=== PATIENT | male | born 1980 | race Caucasian/White ===

== ENCOUNTER 2023-10-23 18:09 | Inpatient (IN) | payer OTHER ==
[~2023-10-23] VITALS: Ht 177.8 cm; Wt 108.9 kg
[2023-10-23 19:10] LABS: BASOPHILS ABSOLUTE AUTO 0.07 K/mm3 (0.00-0.23); BASOPHILS PERCENT AUTO 1 % (0-2); EOSINOPHILS PERCENT AUTO 2 % (0-6); Hemoglobin 14.1 g/dL (13.5-17.5); IMMATURE GRAN ABSOLUTE AUTO 0.04 K/mm3 (0.00-0.10); IMMATURE GRAN PERCENT AUTO 0 % (0-1); LYMPHOCYTES ABSOLUTE AUTO 2.45 K/mm3 (0.84-5.20); LYMPHOCYTES PERCENT AUTO 21 % (21-46); MONOCYTES ABSOLUTE AUTO 1.05 K/mm3 (0.16-1.47); MONOCYTES PERCENT AUTO 9 % (4-13); Mean Corpuscular HGB 29.4 pg (26.0-34.0); Mean Corpuscular HGB Conc 32.8 g/dL (31.5-36.5); Mean Corpuscular Volume 90 fL (80-100); NEUTROPHILS ABSOLUTE AUTO 7.83 K/mm3 (1.96-9.15); NEUTROPHILS PERCENT AUTO 67 % (41-73); Platelet Count 364 K/mm3 (150-400); RDW Coefficient Variation 14.8 % (11.7-14.2); RDW Standard Deviation 48.6 fL (35.1-46.3); Red Blood Cell Count 4.79 M/mm3 (4.30-5.90); White Blood Cell Count 11.64 K/mm3 (4.00-11.30)
[2023-10-23 19:38] LABS: Albumin, Blood 3.2 g/dL (3.4-5.0); Albumin/Globulin Ratio 0.8 (0.8-1.8); Bun/Creatinine Ratio 16.7 (12.0-20.0); Calcium, Blood 8.9 mg/dL (8.5-10.1); Creatinine, Blood 0.96 mg/dL (0.60-1.20); Potassium, Blood 4.3 mmol/L (3.5-5.5); Total Protein, Blood 7.2 g/dL (6.4-8.2)
[2023-10-23] MEDS ORDERED: Aspirin 325 MG Tab PO ONE (20:20)
[2023-10-24 02:46] VITALS: BP 129/103
[2023-10-24 02:50] LABS: Hematocrit 39.2 % (37.0-53.0); Hemoglobin 12.9 g/dL (13.5-17.5); Mean Corpuscular HGB 29.6 pg (26.0-34.0); Mean Corpuscular HGB Conc 32.9 g/dL (31.5-36.5); Mean Corpuscular Volume 90 fL (80-100); Mean Platelet Volume 9.6 fL (9.1-12.4); Platelet Count 276 K/mm3 (150-400); RDW Coefficient Variation 15.1 % (11.7-14.2); RDW Standard Deviation 49.5 fL (35.1-46.3); Red Blood Cell Count 4.36 M/mm3 (4.30-5.90); White Blood Cell Count 13.26 K/mm3 (4.00-11.30)
[2023-10-24 03:32] LABS: Anti-Xa UFH, PHA Monitoring <0.10 IU/mL; International Normalized Ratio 1.07; Prothrombin Time Results 11.4 Sec (9.7-11.5)
[2023-10-24] MEDS ORDERED: Heparin Sodium 5000 Units/ML 1ML MDV IV ONE (03:55)
[2023-10-24 03:57] LABS: Bun/Creatinine Ratio 16.4 (12.0-20.0); Calcium, Blood 7.6 mg/dL (8.5-10.1); Creatinine, Blood 0.98 mg/dL (0.60-1.20)
[2023-10-24] MEDS ORDERED: Heparin Sodium,Porcine/0.5 NS 500 ML IV SCH (04:00)
[2023-10-24 04:16] LABS: CHOL/HDL RATIO 4.6; Cholesterol 153 mg/dL (50-200); HDL Cholesterol 33 mg/dL (>39); Low Density Lipoprotein Chol 100 mg/dL (0-110); Triglycerides 98 mg/dL (30-160); Very Low Density Lipoprot Chol 19 mg/dL (6-32)
--- NOTE | 2023-10-24 04:37 | NUR ---
TRANSFER NOTE PT ARRIVED FROM ED AT 0240. PT A&O4 AND COOPERATIVE. PT DENIES CP AND DISCOMFORT. LEGAL PROJECT MANAGER CONFIRMED TRANSMISSION, PT CURRENTLY NSR. RESIDENTIAL ROOFER HELPER NOTIFIED CARDIO FOR CONSULT. PT NOW ON CONTINUOUS HEPARIN GTTS. PT EDUCATED ON RISKS AND BENEFITS TO NEW MED. NO SKIN BREAKDOWN PRESENT ON ADMISSION AND PT WAS ABLE TO ANSWER ALL ADMISSION QUESTIONS. BED IN LOWEST POSITION AND CALL LIGHT WITHIN REACH.
[2023-10-24] MEDS ORDERED: Atorvastatin 40 MG Tab PO SCH (09:00)
[2023-10-24] MEDS ORDERED: Aspirin 81 MG Chew PO SCH (09:00)
[2023-10-24] MEDS ORDERED: Furosemide 10 MG/ML 4ML Vial IV SCH (09:36)
[2023-10-24 09:51] VITALS: BP 154/109
[2023-10-24] MEDS ORDERED: Spironolactone 25 MG Tab PO SCH (10:00)
[2023-10-24] MEDS ORDERED: Dose Adjust by Pharmacy XX STA ×2 (11:28→18:30)
[2023-10-24 13:33] LABS: U Amphetamine Screen Not Detected; U Barbituate Screen Not Detected; U Benzodiazapine Screen Not Detected; U Buprenorphine Screen Not Detected; U Cannabinoids Screen Not Detected; U Cocaine Screen Not Detected; U Methadone Screen Not Detected; U Methamphetamine Screen Not Detected; U Opiates Screen Not Detected; U Oxycodone Screen Not Detected; U Phencyclidine Screen Not Detected
[2023-10-24 13:36] LABS: SARS-Cov-2 (COVID-19) PCR, MMC NEGATIVE (NEGATIVE)
[2023-10-24 14:05] VITALS: BP 149/121
[2023-10-24] MEDS ORDERED: Sacubitril/Valsartan 24 MG-26 MG Tab PO SCH (15:00)
[2023-10-24 15:07] VITALS: BP 143/105
[2023-10-24 19:10] VITALS: BP 135/104
--- NOTE | 2023-10-24 20:27 | NUR ---
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
[2023-10-24] MEDS ORDERED: Baclofen 10 MG Tab PO ONE (20:45)
--- NOTE | 2023-10-24 20:51 | NUR ---
CRAMPING PT STARTED TO REPORT CRAMPING PAIN IN BACK AND IN ABD. PT REPORTS THAT THE PAIN JUST SUDDENLY CAME OUT OF NOWHERE. AFTER A FEW MINUTES THAT CRAMPING SUBSIDED. PT RECENTLY HAS BEEN DIURESED WITH ALDACTONE, AND LASIK. VICKY KEITH NP CALLED AND NOTIFIED. RECEIVED ORDER FOR MUSCLE RELAXER AND TO RECHECKED LABS.
[2023-10-24 21:24] LABS: Magnesium, Blood 2.5 mg/dL (1.6-2.4); Potassium, Blood 3.8 mmol/L (3.5-5.5)
[2023-10-25 01:33] LABS: Bun/Creatinine Ratio 19.6 (12.0-20.0); Calcium, Blood 9.1 mg/dL (8.5-10.1); Creatinine, Blood 1.07 mg/dL (0.60-1.20); Potassium, Blood 3.8 mmol/L (3.5-5.5)
[2023-10-25] MEDS ORDERED: Dose Adjust by Pharmacy XX STA ×3 (02:06→14:49)
[2023-10-25 02:42] VITALS: BP 149/97
--- NOTE | 2023-10-25 05:49 | NUR ---
SHIFT SUMMARY PT HAS RESTED T/O THE NIGHT. PT GIVEN LASIK AT SHIFT CHANGE AND HAS BEEN VOIDING ADEQUATELY. PT HAD SOME CRAMPING IN HIS ABD AND BACK AT THE START OF THE SHIFT, SEE PREVIOUS NURSE'S NOTE. PO BACLOFEN GIVEN, WHICH RELIEVED CRAMPING. HEPARIN GTT INFUSING. VITALS ARE STABLE. NO REPORTS OF CHEST PAIN. PT HAS BEEN INDEPENDENT IN THE ROOM. BED IN LOWEST POSITION, CALL LIGHT WITHIN REACH.
[2023-10-25 07:01] VITALS: BP 144/101
[2023-10-25 08:09] LABS: BASOPHILS PERCENT AUTO 1 % (0-2); EOSINOPHILS ABSOLUTE AUTO 0.38 K/mm3 (0.00-0.68); EOSINOPHILS PERCENT AUTO 2 % (0-6); Hematocrit 47.2 % (37.0-53.0); Hemoglobin 15.4 g/dL (13.5-17.5); IMMATURE GRAN ABSOLUTE AUTO 0.07 K/mm3 (0.00-0.10); IMMATURE GRAN PERCENT AUTO 0 % (0-1); LYMPHOCYTES ABSOLUTE AUTO 2.28 K/mm3 (0.84-5.20); LYMPHOCYTES PERCENT AUTO 14 % (21-46); MONOCYTES ABSOLUTE AUTO 1.55 K/mm3 (0.16-1.47); MONOCYTES PERCENT AUTO 10 % (4-13); Mean Corpuscular HGB 28.9 pg (26.0-34.0); Mean Corpuscular HGB Conc 32.6 g/dL (31.5-36.5); Mean Corpuscular Volume 89 fL (80-100); Mean Platelet Volume 9.4 fL (9.1-12.4); NEUTROPHILS ABSOLUTE AUTO 11.56 K/mm3 (1.96-9.15); NEUTROPHILS PERCENT AUTO 73 % (41-73); Platelet Count 361 K/mm3 (150-400); RDW Coefficient Variation 14.9 % (11.7-14.2); RDW Standard Deviation 48.2 fL (35.1-46.3); Red Blood Cell Count 5.32 M/mm3 (4.30-5.90); White Blood Cell Count 15.94 K/mm3 (4.00-11.30)
[2023-10-25 08:24] LABS: Albumin, Blood 3.2 g/dL (3.4-5.0); Albumin/Globulin Ratio 0.8 (0.8-1.8); Bilirubin, Total 1.9 mg/dL (0.1-1.0); Bun/Creatinine Ratio 18.6 (12.0-20.0); Calcium, Blood 8.7 mg/dL (8.5-10.1); Creatinine, Blood 1.02 mg/dL (0.60-1.20); Globulin, Blood 3.8 g/dL (2.2-4.0); Magnesium, Blood 2.3 mg/dL (1.6-2.4); Potassium, Blood 3.6 mmol/L (3.5-5.5)
[2023-10-25] MEDS ORDERED: Empagliflozin 10 MG TAB PO SCH (09:00)
[2023-10-25] MEDS ORDERED: Potassium Chloride 20 MEQ TabCR PO ONE (12:00)
[2023-10-25 15:33] VITALS: BP 124/97
--- NOTE | 2023-10-25 18:15 | NUR ---
SHIFT SUMMARY PT HAD AN UNEVENTFUL DAY, SOME CRAMPING, DISCUSSED THIS WITH RESIDENTS AND REQUESTED BACLOFEN OR ANOTHER MUSCLE RELAXER WHICH HE HAD BEEN GIVEN A 1X ORDER LAST NIGHT WHICH HELPED BUT WAS NOT GIVEN TODAY. DAILY WEIGHT NOT RECORDED FROM NOC SHIFT SO THIS WAS UPDATED AFTER DINNER WAS COMPLETE.PT REPORTS SIIGNIFICANT IMPROVEMENT IN HIS BREATHING AND OVERALL COMFORT LEVEL TODAY. NO ACUTE EVENTS THIS SHIFT, CALL LIGHT IN REACH.
[2023-10-25 20:37] VITALS: BP 97/81
[2023-10-25] MEDS ORDERED: Baclofen 10 MG Tab PO ONE (22:05)
[2023-10-26 05:08] VITALS: BP 110/82
--- NOTE | 2023-10-26 05:10 | NUR ---
SHIFT SUMMARY NO ACUTE CHANGES TO REPORT OVERNIGHT, PT CONTINUES ON HEPARIN GTT OVERNIGHT ORDERED. PT REPORTS INTERMITTENT CRAMPING, BACLOFEN ORDERED. PT DOES NOT REPORT CHEST PAIN. VITALS STABLE. PT HAS BEEN INDEPENDENT IN THE ROOM. BED POSITION, CALL LIGHT WITHIN REACH.
[2023-10-26 05:13] LABS: BASOPHILS ABSOLUTE AUTO 0.09 K/mm3 (0.00-0.23); BASOPHILS PERCENT AUTO 1 % (0-2); EOSINOPHILS ABSOLUTE AUTO 0.44 K/mm3 (0.00-0.68); EOSINOPHILS PERCENT AUTO 3 % (0-6); Hematocrit 53.9 % (37.0-53.0); Hemoglobin 17.8 g/dL (13.5-17.5); IMMATURE GRAN ABSOLUTE AUTO 0.07 K/mm3 (0.00-0.10); IMMATURE GRAN PERCENT AUTO 1 % (0-1); LYMPHOCYTES ABSOLUTE AUTO 2.94 K/mm3 (0.84-5.20); LYMPHOCYTES PERCENT AUTO 23 % (21-46); MONOCYTES ABSOLUTE AUTO 1.72 K/mm3 (0.16-1.47); MONOCYTES PERCENT AUTO 13 % (4-13); Mean Corpuscular HGB 29.1 pg (26.0-34.0); Mean Corpuscular Volume 88 fL (80-100); Mean Platelet Volume 9.5 fL (9.1-12.4); NEUTROPHILS ABSOLUTE AUTO 7.73 K/mm3 (1.96-9.15); NEUTROPHILS PERCENT AUTO 60 % (41-73); Platelet Count 407 K/mm3 (150-400); RDW Coefficient Variation 15.4 % (11.7-14.2); RDW Standard Deviation 47.4 fL (35.1-46.3); Red Blood Cell Count 6.12 M/mm3 (4.30-5.90); White Blood Cell Count 12.99 K/mm3 (4.00-11.30)
[2023-10-26 05:42] LABS: Albumin, Blood 3.4 g/dL (3.4-5.0); Albumin/Globulin Ratio 0.8 (0.8-1.8); Bilirubin, Total 1.7 mg/dL (0.1-1.0); Bun/Creatinine Ratio 18.6 (12.0-20.0); Calcium, Blood 9.1 mg/dL (8.5-10.1); Creatinine, Blood 1.18 mg/dL (0.60-1.20); Globulin, Blood 4.2 g/dL (2.2-4.0); Potassium, Blood 3.9 mmol/L (3.5-5.5); Total Protein, Blood 7.6 g/dL (6.4-8.2)
[2023-10-26 07:43] VITALS: BP 97/62
[2023-10-26] MEDS ORDERED: Metoprolol Succinate 25 MG TABCR PO SCH (13:00)
[2023-10-26 14:34] VITALS: BP 108/70
--- NOTE | 2023-10-26 18:19 | NUR ---
SHIFT SUMMARY S/P CP, A/OX4, VSS, TOLERATING DIET, IURETICS CONTINUE TODAY, PLAN FOR ANGIOGRAM TOMORROW IN THE AM, NPO AT MIDNIGHT TONIGHT. NO ACUTE EVENTS THIS SHIFT, CALL LIGHT IN REACH.
[2023-10-26 19:41] VITALS: BP 104/74
[2023-10-27] VITALS (10 sets, daily range): BP systolic 93–121; BP diastolic 65–89
[2023-10-27 05:11] LABS: BASOPHILS PERCENT AUTO 1 % (0-2); EOSINOPHILS ABSOLUTE AUTO 0.43 K/mm3 (0.00-0.68); EOSINOPHILS PERCENT AUTO 4 % (0-6); Hemoglobin 17.4 g/dL (13.5-17.5); IMMATURE GRAN ABSOLUTE AUTO 0.07 K/mm3 (0.00-0.10); IMMATURE GRAN PERCENT AUTO 1 % (0-1); LYMPHOCYTES ABSOLUTE AUTO 3.26 K/mm3 (0.84-5.20); LYMPHOCYTES PERCENT AUTO 27 % (21-46); MONOCYTES ABSOLUTE AUTO 1.78 K/mm3 (0.16-1.47); MONOCYTES PERCENT AUTO 15 % (4-13); Mean Corpuscular HGB 29.1 pg (26.0-34.0); Mean Corpuscular HGB Conc 32.8 g/dL (31.5-36.5); Mean Corpuscular Volume 89 fL (80-100); Mean Platelet Volume 9.3 fL (9.1-12.4); NEUTROPHILS ABSOLUTE AUTO 6.43 K/mm3 (1.96-9.15); NEUTROPHILS PERCENT AUTO 53 % (41-73); Platelet Count 404 K/mm3 (150-400); RDW Coefficient Variation 14.8 % (11.7-14.2); RDW Standard Deviation 47.7 fL (35.1-46.3); Red Blood Cell Count 5.97 M/mm3 (4.30-5.90); White Blood Cell Count 12.07 K/mm3 (4.00-11.30)
[2023-10-27] MEDS ORDERED: Dose Adjust by Pharmacy XX STA ×2 (05:33→06:58)
[2023-10-27 05:36] LABS: Calcium, Blood 9.1 mg/dL (8.5-10.1); Creatinine, Blood 1.3 mg/dL (0.60-1.20); Potassium, Blood 4.4 mmol/L (3.5-5.5)
--- NOTE | 2023-10-27 07:09 | NUR ---
SHIFT SUMMARY PT A&O X4. VSS; ALTHOUGH SBP SOFT AT 99 - 104. ALSO PT WITH LAST VS SHOWING BP OF 99/77, MAP GREATER THAN 65. HRR SR/ST 80 - 105. TELE CALLED THIS RN AT 0424 TO NOTIFY THAT PT HAD 6 BEAT RUN OF VTACH. PT SLEEPING DURING EVENT, RN AWAKENED PT AND HE DENIES ANY SX. AFEBRILE, SPO2 93 - 97% ON RA. NO EVENTS OF CP/PRESSURE, SOB, DIZZINESS, N/V, PALPITATIONS. HEPARIN INFUSING PER EMAR. PT AMBULATING TO RESTROOM INDEPENDENTLY. VOIDING WELL WITH AROUND 2300 UOP. PT NPO SINCE 0000 FOR POSSIBLE ANGIOGRAM TODAY. ABLE TO MAKE NEEDS KNOWN, CALL LIGHT IN REACH. PT HAD SHOWER THIS SHIFT.
[2023-10-27] MEDS ORDERED: Verapamil HCL 2.5 MG/ML 2ML Injection ONE (08:11)
[2023-10-27] MEDS ORDERED: Heparin Sodium 1000 Units/ML 10ML MDV ONE ×2 (08:12→09:49)
[2023-10-27] MEDS ORDERED: NS 250 ML IV ONE (08:12)
[2023-10-27] MEDS ORDERED: NS 1,000 ML IV ONE ×2 (08:12→08:50)
[2023-10-27] MEDS ORDERED: Nitroglycerin 2 MG/20 ML BTL ONE (08:13)
[2023-10-27] MEDS ORDERED: FentaNYL Citrate 50 MCG/ML 2 ML Injection ONE (08:50)
[2023-10-27] MEDS ORDERED: Midazolam HCl 1MG / ML 2ML Vial ONE (08:50)
[2023-10-27] MEDS ORDERED: Furosemide 40 MG Tab PO SCH (09:00)
--- NOTE | 2023-10-27 09:14 | NUR ---
PT PICKED UP BY [facility] RN, DIURETICS HELD PER [facility] BUT ALL OTHER CARDIAC MEDS GIVEN THIS AM. PT UPDATED ON PLAN TO GO TO PCU AFTER PROCEDURE.
[2023-10-27] MEDS ORDERED: Phenylephrine HCl 100 MCG/ML-NS 10MLSYR (1MG/10ML) ONE (09:17)
[2023-10-27] MEDS ORDERED: Ticagrelor 90 MG TABLET ONE (09:40)
[2023-10-27] MEDS ORDERED: Atropine Sulfate 0.1 MG/ML 10ML SYR ONE (09:46)
--- NOTE | 2023-10-27 13:22 | NUR ---
UPDATE TR BAND DEFLATION STARTED AT THIS TIME. 1ML OUT, NO BLEEDING, NO BRUISING, NO HEMATOMA NOTED. ARM BOARD IN PLACE.
--- NOTE | 2023-10-27 15:23 | NUR ---
update TR BAND FULLY DEFLATED AT THIS TIME. NO SIGN OF BRUISING, BLEEDING, ,OR HEMATOMA. ARM BOARD IN PLACE.
--- NOTE | 2023-10-27 16:58 | NUR ---
SHIFT SUMMARY PT A&OX4. VSS. PT W/ R RADIAL SITE. TR BAND REMOVED, FULLY RECOVERED. OPSITE IN PLACE. ARM BOARD IN PLACE. NO SIGNS OF BLEEDING, BRUISING OR HEMATOMA. PT EDUCATED ABOUT POST ANGIO/R RADIAL PRECAUTIONS, PT VERBALIZED. PT UP TO BATHROOM INDEPENDENTLY TO VOID. PT AMBULATED AROUND HALLWAY THIS AFTERNOON. PT DENIES PAIN. PT ASKED THIS EVENING IF HE COULD HAVE A PIZZA DELIVERED TO HIS ROOM. PT EDUCATED ON HEART HEALTH DIET. HEP GTT D/C'D BY . PLAVIX TO START IN AM PER EMAR. PT SITTING ON BED IN ROOM. CALL LIGHT IN REACH.
[2023-10-27] MEDS ORDERED: Enoxaparin 40 MG/0.4 ML SYR SC SCH (21:00)
--- NOTE | 2023-10-27 21:57 | NUR ---
ASSUMPTION OF CARE: THIS RN ASSUMED CARE OF PT AT APPROX 1900, BEDSIDE REPORT COMPLETED. PT A/OX4, ABLE TO COMMUNICATE NEEDS TO STAFF. ANGIO SITE TO R RADIAL C/D/I W/ ARM BOARD IN PLACE. NO BLEEDING, BRUISING, OR HEMATOMA FORMATION PRESENT AT THIS TIME. RADIAL PULSE PALPABLE, PT DENIES ANY N/T TO FINGERS. VSS. HR 90-100'S, SINUS-SINUS TACH ON TELE. SBP 100'S, DENIES ANY CHEST PAIN/PRESSURE/PALPITATIONS. SPO2 >90% ON RA, RESPIRATIONS EVEN & UNLABORED. INDEPENDENT IN ROOM. PT ABLE TO AMBULATE THROUGH HALLWAYS THIS EVENING. NO OTHER NEEDS AT THIS TIME, RESTING IN BED W/ CALL LIGHT IN REACH.
[2023-10-27] MEDS ORDERED: Acetaminophen 325 MG TABLET PO PRN (23:20)
[2023-10-28 03:36] VITALS: BP 113/79
--- NOTE | 2023-10-28 05:11 | NUR ---
END OF SHIFT NOTE: NO ACUTE EVENTS OVERNIGHT. R RADIAL SITE REMAINS INTACT W/ ARM BOARD IN PLACE. C/O PAIN TO RUE, MEDICATED PER EMAR. VSS. HR 90-100'S, SINUS ON TELE. SBP 90-110'S, CONTINUES TO DENY CHEST PAIN/PRESSURE. SPO2 >90% ON RA. INDEPENDENT IN ROOM, STRICT I/O OVERNIGHT. NO OTHER NEEDS AT THIS TIME, CALL LIGHT IN REACH. WILL REPORT TO ONCOMING RN.
[2023-10-28 08:10] VITALS: BP 109/87
[2023-10-28 08:13] LABS: Hemoglobin 16.7 g/dL (13.5-17.5); Mean Corpuscular HGB 28.8 pg (26.0-34.0); Mean Corpuscular HGB Conc 32.1 g/dL (31.5-36.5); Mean Corpuscular Volume 90 fL (80-100); Mean Platelet Volume 9.4 fL (9.1-12.4); Platelet Count 381 K/mm3 (150-400); RDW Coefficient Variation 14.6 % (11.7-14.2); RDW Standard Deviation 47.6 fL (35.1-46.3); White Blood Cell Count 9.59 K/mm3 (4.00-11.30)
[2023-10-28 08:24] LABS: C-Reactive Protein, High Sens. 4.25 mg/dL (0.000-3.000); Magnesium, Blood 2.6 mg/dL (1.6-2.4)
[2023-10-28 08:25] LABS: Phosphorus, Blood 4.1 mg/dL (2.5-4.9); Potassium, Blood 4.5 mmol/L (3.5-5.5)
[2023-10-28] MEDS ORDERED: Clopidogrel Bisulfate 75 MG Tab PO SCH (09:00)
[2023-10-28] MEDS ORDERED: Torsemide 20 MG TAB PO SCH (09:00)
[2023-10-28] MEDS ORDERED: SPIR25 PO (11:48)
[2023-10-28] MEDS ORDERED: LIPITOR80 MG PO (11:48)
[2023-10-28] MEDS ORDERED: CLOP75 PO (11:48)
[2023-10-28] MEDS ORDERED: TORSE20 PO (11:54)
[2023-10-28] MEDS ORDERED: JARDIANCE10 MG PO (11:55)
[2023-10-28] MEDS ORDERED: ENTRESTO 24 MG1 EACH PO (11:55)
[2023-10-28] MEDS ORDERED: Acetaminophen325 M1 PO (11:55)
[2023-10-28 13:30] VITALS: BP 124/90
--- NOTE | 2023-10-28 14:24 | NUR ---
DISCHARGE NOTE PT DISCHARED TO HOME VIA [facility]. THIS RN WENT OVER WRITTEN DISCHARGE INSTRUCTIONS WITH PT. PT WAS INSTRUCTED TO FOLLOW UP WITH PRIMARY AND CARDIOLOGY AND TO SEEK MEDICAL ATTENTIONS IF SYMOTPOMS OCCUR. PT DENIES ANY QUESITONS OR CONCERNS.
[2023-10-29 14:45] LABS: ANGIOTENSIN CONVERTING ENZYME 65 U/L (16-85)
[2023-10-29 17:39] LABS: HIV 1,2 COMBO ANTIGEN/ANTIBODY Negative (Negative)
[2023-10-29 21:33] LABS: LYME VLSE1/PEPC10 ABS, ELISA 0.17 IV (<=0.90)
== END 2023-10-28 14:23 | disposition home or self-care (01) | DRG 280 ==
LOC: ER 18:09 → MEDS 18:10 → SURS 18:10 → PCU 10-27 08:55
PROVIDERS: Family Medicine; Internal Medicine Cardiovascular Disease; Nurse Practitioner Acute Care; Student in an Organized Health Care Education/Training Program; ADMIT Internal Medicine
PROC: B2111ZZ Fluoroscopy of Multiple Coronary Arteries using Low Osmolar Contrast (ICD-10-PCS; principal; 2023-10-27)
PROC: 4A023N7 Measurement of Cardiac Sampling and Pressure, Left Heart, Percutaneous Approach (ICD-10-PCS; 2023-10-27)
PROC: 02JA3ZZ Inspection of Heart, Percutaneous Approach (ICD-10-PCS; 2023-10-27)
DX: I11.0 Hypertensive heart disease with heart failure (principal); I50.21 Acute systolic (congestive) heart failure; I21.A1 Myocardial infarction type 2; I44.1 Atrioventricular block, second degree; I42.0 Dilated cardiomyopathy; F17.210 Nicotine dependence, cigarettes, uncomplicated; I25.10 Atherosclerotic heart disease of native coronary artery without angina pectoris; E78.5 Hyperlipidemia, unspecified; F41.9 Anxiety disorder, unspecified; E66.9 Obesity, unspecified; Z88.1 Allergy status to other antibiotic agents; Z88.8 Allergy status to other drugs, medicaments and biological substances; Z68.35 Body mass index [BMI] 35.0-35.9, adult; Z98.890 Other specified postprocedural states; Z82.49 Family history of ischemic heart disease and other diseases of the circulatory system; Z71.6 Tobacco abuse counseling
CPT/HCPCS: 36415; 71046; 71260; 80048; 80053; 80061; 82164; 82728; 83036; 83690; 83735; 84100; 84132; 84443; 84484; 85025; 85027; 85347; 85379; 85520; 85610; 85651; 86141; 93005; 93010; 93458; 96374; 96375; 96376; 99152; 99153; 99285-25; A9270; C1769; C1887; C1894; C8929; G0378; J0461; J1644; J1650; J1940; J2250; J2371; J3010; J7030; J7050; Q9957; Q9967; U0002

== ENCOUNTER 2024-03-16 06:46 | Inpatient (IN) | payer OTHER ==
[~2024-03-16] VITALS: Ht 177.8 cm; Wt 121.6 kg
[~2024-03-16 06:46] MED LIST: Acetaminophen325 M1 PO; CLOP75 PO; ENTRESTO 24 MG1 EACH PO; JARDIANCE10 MG PO; LIPITOR80 MG PO; SPIR25 PO; TORSE20 PO
[2024-03-16 07:42] LABS: BASOPHILS ABSOLUTE AUTO 0.05 K/mm3 (0.00-0.23); BASOPHILS PERCENT AUTO 0 % (0-2); EOSINOPHILS ABSOLUTE AUTO 0.01 K/mm3 (0.00-0.68); EOSINOPHILS PERCENT AUTO 0 % (0-6); Hematocrit 36.9 % (37.0-53.0); Hemoglobin 11.9 g/dL (13.5-17.5); IMMATURE GRAN ABSOLUTE AUTO 0.09 K/mm3 (0.00-0.10); IMMATURE GRAN PERCENT AUTO 1 % (0-1); LYMPHOCYTES ABSOLUTE AUTO 0.96 K/mm3 (0.84-5.20); LYMPHOCYTES PERCENT AUTO 5 % (21-46); MONOCYTES ABSOLUTE AUTO 1.88 K/mm3 (0.16-1.47); MONOCYTES PERCENT AUTO 11 % (4-13); Mean Corpuscular HGB 28.3 pg (26.0-34.0); Mean Corpuscular HGB Conc 32.2 g/dL (31.5-36.5); Mean Corpuscular Volume 88 fL (80-100); Mean Platelet Volume 9.8 fL (9.1-12.4); NEUTROPHILS ABSOLUTE AUTO 14.73 K/mm3 (1.96-9.15); NEUTROPHILS PERCENT AUTO 83 % (41-73); Platelet Count 339 K/mm3 (150-400); RDW Coefficient Variation 14.8 % (11.7-14.2); RDW Standard Deviation 47.9 fL (35.1-46.3); Red Blood Cell Count 4.21 M/mm3 (4.30-5.90); White Blood Cell Count 17.72 K/mm3 (4.00-11.30)
[2024-03-16 07:54] LABS: Albumin, Blood 2.7 g/dL (3.4-5.0); Albumin/Globulin Ratio 0.8 (0.8-1.8); Bilirubin, Total 2.1 mg/dL (0.1-1.0); Bun/Creatinine Ratio 13.3 (12.0-20.0); Calcium, Blood 8.2 mg/dL (8.5-10.1); Creatinine, Blood 1.05 mg/dL (0.60-1.20); Globulin, Blood 3.5 g/dL (2.2-4.0); Potassium, Blood 4.1 mmol/L (3.5-5.5); Total Protein, Blood 6.2 g/dL (6.4-8.2)
[2024-03-16] MEDS ORDERED: Zolpidem Tartrate 10 MG Tab PO PRN (10:15)
[2024-03-16] MEDS ORDERED: FLU VACC TS2024-25(6MOS UP)/PF 45 MCG/0.5 ML SYRINGE IM PRN (10:15)
[2024-03-16] MEDS ORDERED: Prochlorperazine Edisylate 10 mg Vial IV PRN (10:15)
[2024-03-16] MEDS ORDERED: Furosemide 10 MG / ML 2ML Vial IV SCH (11:00)
[2024-03-16 13:15] VITALS: BP 131/106
[2024-03-16] MEDS ORDERED: Cephalexin Monohydrate 500 MG Cap PO SCH (13:15)
[2024-03-16] MEDS ORDERED: Acetaminophen 500 MG Tab PO PRN (13:50)
--- NOTE | 2024-03-16 14:08 | NUR ---
ADMISSION NOTE: PATIENT IS ALERT AND RIENTED X 4. ABLE TO MAKE NEEDS KNOWN, PLEASANT COOPERATIVE WITH CARE. JOVON HAS A HEDACHE, ORDER FOR TYLENOL OBTAINED. ENDORSES N/T BLE. JOVON AFEBRILE ON RA. SPO2 >98%. WOB SLIGHTLY INCREASED. VERY INCREASED WITH EXERTION. ONLY VERY MINIMALLY UNSTEADY ON FEET, IMPROVED FROM ADMISSION HE ENDORSED. FREQUENT COUGH, SLIGHTLY IMPROVING SINCE ADMISSION. PATIENT DIURESED 2.1L IN ED. ST IN THE 110-130 WITH EXERTION. DENIES CHEST PAIN PRESUSRE OR SOB AT REST. EXTENSIVE HEART HISTORY, DENIES URINARY OR GI ISSUES. PALE REDDNESS RIGHT ABD. BLE BENOUS STASIS ULCERS AND PVD SCRATCHES, RIGHT LEG REDDND INFORMED PROVIDER, KEFLEX PO Q6 STARTED. FR WELL 150 IN TOTAL NO OTHER ACUTE CONCERNS AT THIS TIME.
[2024-03-16 15:15] VITALS: BP 118/69
[2024-03-16] MEDS ORDERED: OxyCODONE HCL 5 MG TAB PO PRN (18:20)
--- NOTE | 2024-03-16 18:46 | NUR ---
EOS: NO ACUTE CHANGES OVERALL APPEARS TO BE IMPROVING, RLE IS WEEPING, WITH INCREASED PAIN. SEE MAR FOR NEW PAIN MEDICATION. DENIES CHEST PAIN PRESSURE OR SOB. PLAN OF CARE CONTINUES. PICTURES TO BE PRINTED. PCT AWARE. LUNA RESOLVED WITH TYLENOL.
[2024-03-16 20:35] VITALS: BP 135/124
[2024-03-17] VITALS (7 sets, daily range): BP systolic 120–136; BP diastolic 85–103
[2024-03-17] MEDS ORDERED: Benzonatate 100 MG Cap PO PRN (03:55)
[2024-03-17 05:11] LABS: BASOPHILS ABSOLUTE AUTO 0.06 K/mm3 (0.00-0.23); BASOPHILS PERCENT AUTO 0 % (0-2); EOSINOPHILS PERCENT AUTO 1 % (0-6); Hematocrit 40.8 % (37.0-53.0); Hemoglobin 12.9 g/dL (13.5-17.5); IMMATURE GRAN ABSOLUTE AUTO 0.05 K/mm3 (0.00-0.10); IMMATURE GRAN PERCENT AUTO 0 % (0-1); LYMPHOCYTES ABSOLUTE AUTO 1.13 K/mm3 (0.84-5.20); LYMPHOCYTES PERCENT AUTO 7 % (21-46); MONOCYTES ABSOLUTE AUTO 1.79 K/mm3 (0.16-1.47); MONOCYTES PERCENT AUTO 11 % (4-13); Mean Corpuscular HGB Conc 31.6 g/dL (31.5-36.5); Mean Corpuscular Volume 89 fL (80-100); Mean Platelet Volume 9.8 fL (9.1-12.4); NEUTROPHILS PERCENT AUTO 81 % (41-73); Platelet Count 307 K/mm3 (150-400); RDW Coefficient Variation 14.7 % (11.7-14.2); RDW Standard Deviation 47.8 fL (35.1-46.3); White Blood Cell Count 16.03 K/mm3 (4.00-11.30)
[2024-03-17 05:40] LABS: Albumin, Blood 2.8 g/dL (3.4-5.0); Albumin/Globulin Ratio 0.7 (0.8-1.8); Bilirubin, Total 2.4 mg/dL (0.1-1.0); Calcium, Blood 8.9 mg/dL (8.5-10.1); Creatinine, Blood 1.07 mg/dL (0.60-1.20); Globulin, Blood 3.8 g/dL (2.2-4.0); Potassium, Blood 3.9 mmol/L (3.5-5.5); Total Protein, Blood 6.6 g/dL (6.4-8.2)
--- NOTE | 2024-03-17 05:42 | NUR ---
SHIFT SUMMARY ASSUMED CARE OF PT AT APPROX 1900. PT A&O4, COOPERATIVE IN CARE AND ABLE TO EXPRESS NEEDS. PT DENIES SOB AND CP/PRESSURE. PT C/O PAIN TO THE BLE AND A COUGH. PRN ANALESICS GIVEN AND NOTIFIED MD OF COUGH; ORDERS GIVEN. NEEDED TO REMIND PT OF OVERNIGHT FLUID RESTRICTION AND EDUCATION GIVEN. BED IN LOWEST POSITION AND CALL LIGHT WITHIN REACH.
[2024-03-17] MEDS ORDERED: Enoxaparin 40 MG/0.4 ML SYR SC SCH ×2 (09:00→21:00)
[2024-03-17] MEDS ORDERED: Empagliflozin 10 MG TAB PO SCH (09:00)
[2024-03-17] MEDS ORDERED: Spironolactone 12.5 MG TAB PO SCH (09:00)
[2024-03-17] MEDS ORDERED: Sacubitril/Valsartan 24 MG-26 MG Tab PO SCH (09:00)
--- NOTE | 2024-03-17 11:48 | NUR ---
ASSUMPTION OF CARE; PATIENT REMAINS UNCHANGED FROM PREVIOUS SHIFT EXCEPT SOME INCREASED RLE PAIN, CONTROLLED WITH PAIN MEDICATIONS PER MAR. PATIENT EXPRESSES POTENTIAL NEED FOR EXTENDED STAY DUE TO THIS RLE. EDUCATED ON OUTPATIENT MEDCIATIONS THAT WOULD PROVIDE SAME LEVEL OF CARE. DIURESING WELL. NO ACUTE CONCERNS, DENIES CHEST PAIN PRESSURE OR SOB FOR THIS RN. PLAN OF CARE CONTINUES.
--- NOTE | 2024-03-17 19:17 | NUR ---
EOS: ONLY CHAGES FROM ASSUMPTION IS PATIENT STARTED ENTRESTO, AND JARDIACE TODAY. IMPROVED BLOD PRESSURE REMAINS ST 110-120. DENIES CHEST PAIN PRESSURE OR SOB. PLAN OF CARE CONTINUES.
[2024-03-18] MEDS ORDERED: DEXTROMETHORPHAN/BENZOCAINE 1 EACH LOZENGE MT PRN (02:35)
[2024-03-18] MEDS ORDERED: Docusate Sodium Liquid 100 MG UDC PO PRN (02:40)
[2024-03-18 03:12] VITALS: BP 92/68
[2024-03-18 04:51] LABS: Bun/Creatinine Ratio 17.1 (12.0-20.0); Calcium, Blood 8.4 mg/dL (8.5-10.1); Creatinine, Blood 1.17 mg/dL (0.60-1.20)
--- NOTE | 2024-03-18 05:07 | NUR ---
SHIFT SUMMARY ASSUMED CARE OF PT AT APPROX 1900. PT A&O4, COOPERATIVE IN CARE AND ABLE TO EXPRESS NEEDS. VSS AND PT REMAINED ON RA T/O THE NIGHT. PT OVERNIGHT BATHED AND WALKED DOWN THE DOBBINS W STAFF AND FWW. PT STILL A LITTLE UNSTABLE WHILE WALKING. PT WAS SLIGHTLY SOB WITH THE EXERTION AND C/O PAIN AND PRN ANALGESICS GIVEN. PT REQUESTED MORE WATER THAN THE 500mL ALLOWED PER NIGHT, EDUCATION GIVEN ABOUT FLUID RESTRICTION. LATER OBSERVED PT DRINK WATER FROM THE ROOM SINK AND WHEN ASKED PT ABOUT IT, PT DENIED DRINKING ADDITIONAL FLUID. PT BED IN LOWEST POSITION CALL LIGHT WAS IN REACH.
[2024-03-18 07:40] VITALS: BP 123/106
[2024-03-18 11:24] VITALS: BP 108/77
--- NOTE | 2024-03-18 12:38 | NUR ---
ASSUMPTION OF CARE. PT A/OX4 AND ABLE TO EXPRESS NEEDS. PT INDEPENDENT IN BED AND ROOM. VSS AT THIS TIME. PT DID REPORT SOME SLIGHT SOB THIS MORNING. PT EDUCATED ON IMPORTANCE F ADHERING TO FLUID RESTRICTION, PT VERBALIZED UNDERSTANDING. PT HAS BILAT EDEMA R>L, RIGHT LEG ALOS RED AND WARM TO TOUCH. PT REPORTED PAIN OF RIGHT LEG AND REQUESTED PAIN MED. PAIN TREATED PER EMAR. NO NAUSEA NOTED AT THIS TIME.
[2024-03-18] MEDS ORDERED: Furosemide 10 MG / ML 2ML Vial IV SCH (14:00)
[2024-03-18 17:28] VITALS: BP 116/74
--- NOTE | 2024-03-18 17:42 | NUR ---
SHIFT SUMMARY PT A/OX4, ABLE TO EXPRESS NEEDS AND CALLS APPROPIATE. PT SR-ST THROUGHOUT SHIFT, NO REPORT OF CHEST PAIN/PRESURE. OTHER VSS THROUGHOUT SHIFT WITH O2 SATS IN THE 90'S ON RA. LASIX FREQUENCY INCREASED TO TID, SEE ORDERS. PT INDEPENDENT IN ROOM AND BED. PT USING URINAL INSTRUCTED. T NOTICED TO GOT TO SINK 2 TIMES DURING SHIFT TO GET SMALL AMOUNT OF WATER TO DRINK, PT EDUCATED ON IMPORTANCE OF COMPLIANCE OF FLUID RESTRICTION. PT WORKED WITH THERAPY TODAY, SEE THERAPIST NOTES. PT REPORTED SOME SLIGHT SOB HROUGHOUT SHIFT, REPORTED IMPROVEMENT POST TPHYSIAL THERAPY. PT REPORTED PAIN OF HIS LEGS, TREATED PER EMAR.
[2024-03-18 19:36] VITALS: BP 129/88
[2024-03-19 00:10] VITALS: BP 104/79
[2024-03-19 04:53] VITALS: BP 109/83
--- NOTE | 2024-03-19 05:20 | NUR ---
SHIFT SUMMARY ASSUMED CARE OF PT AT 1900. PT IS A/OX4. HEART SONDS REGLUAR BT TACHY WHILE AWAKE. LUNG SOUNDS HAVE CRACKLES AT THE BASES. PT REQUESTED BED CHANGE FROM THIS NURSE DUE TO WEEPING R LEG. LEG IS RED AND WARM TO TOUCH. PT WALKED FROM ROOM TO ER AND AROND COURTYARD AND BACK. PT EXPRESSED CONCERN TO THIS NURSE THAT HE WILL NOT BE CEDRIC TO GO BACK TO [facility] DUE TO NOT BEING ABLE TO PUT ON SOCK. PT PRESSED CONERN ABOUT LEGS SWELLING AGAIN NCE HE LEAVES. PT EDUCATED ABOUT HEART CONDITION AND HOW IMPORTANT IT IS T ADHERE TO FLUID RESTRICTION.
[2024-03-19 05:30] LABS: Bun/Creatinine Ratio 19.5 (12.0-20.0); Calcium, Blood 8.2 mg/dL (8.5-10.1); Creatinine, Blood 1.13 mg/dL (0.60-1.20); Magnesium, Blood 2.7 mg/dL (1.6-2.4); Potassium, Blood 4.2 mmol/L (3.5-5.5)
[2024-03-19 07:32] VITALS: BP 122/86
[2024-03-19] MEDS ORDERED: CeFAZolin Sodium 2,000 MG in NS 100 ML IV SCH (10:00)
--- NOTE | 2024-03-19 13:40 | NUR ---
REPORT GIVEN TO RN WHOM IS ASSUMING CARE OF PT AT THIS TIME.
[2024-03-19 16:44] VITALS: BP 100/70
--- NOTE | 2024-03-19 17:35 | NUR ---
SHIFT SUMMARY: ASSUMED CARE OF PT APPROX 1400. PT ALERT AND ORIENTED X4, ABLE TO FOLLOW COMMANDS AND MAKE NEEDS KNOWN. COOPERATIVE WITH CARE. STRENGTH EQUAL BILATERALLY. BP AND HR STABLE. DENIES CP/PRESSURE. AFEBRILE. SPO2 >96% ON ROOM AIR. LUNG SOUNDS DIM IN BASES. PULSES PALPABLE. ABD DISTENDED, NON TENDER, BOWEL SOUNDS +. +3 EDEMA IN BLE. PT WITH CELLULITIS TO R. LOWER LEG. WARM TO TOUCH. PT WITH 8/10 PAIN THIS SHIFT, MEDICATED PER EMAR. PT IND IN ROOM. ABLE TO WALK TO AND FROM BATHROOM. DIURESING WELL. NO BM. BED IN LOW, CALL LIGHT IN REACH, WILL REPORT TO ONCOMING RN.
[2024-03-19 20:06] VITALS: BP 126/79
[2024-03-19] MEDS ORDERED: Lactobacil 2-S.Thermo-Bifido 1 1 Cap PO SCH (21:00)
[2024-03-20 00:51] VITALS: BP 115/75
[2024-03-20 04:06] VITALS: BP 122/71
--- NOTE | 2024-03-20 04:42 | NUR ---
SHIFT SUMMARY PT REMAINS A&OX4. VSS ON . PT C/O 10/03 PAIN TO BLE, R LEG WORSE THAN L. PRN OXYCODONE GIVEN WITH GOOD RELIEF. PT GIVEN IV ABX PER APR. PT ALSO GIVEN PRN STOOL SOFTENER WITH GOOD RELIEF. NO FURTHER QUESTIONS OR CONCERNS AT THIS TIME. WILL REPORT TO ONCOMING NURSE.
[2024-03-20 04:45] LABS: Hematocrit 40.2 % (37.0-53.0); Hemoglobin 12.3 g/dL (13.5-17.5); Mean Corpuscular HGB 27.8 pg (26.0-34.0); Mean Corpuscular HGB Conc 30.6 g/dL (31.5-36.5); Mean Corpuscular Volume 91 fL (80-100); Mean Platelet Volume 9.6 fL (9.1-12.4); Platelet Count 379 K/mm3 (150-400); RDW Standard Deviation 50.1 fL (35.1-46.3); Red Blood Cell Count 4.42 M/mm3 (4.30-5.90); White Blood Cell Count 10.37 K/mm3 (4.00-11.30)
[2024-03-20 05:02] LABS: Bun/Creatinine Ratio 20.8 (12.0-20.0); Calcium, Blood 8.5 mg/dL (8.5-10.1); Creatinine, Blood 1.2 mg/dL (0.60-1.20); Potassium, Blood 4.2 mmol/L (3.5-5.5)
[2024-03-20 07:55] VITALS: BP 111/79
[2024-03-20] MEDS ORDERED: Furosemide 10 MG / ML 2ML Vial IV SCH (09:00)
[2024-03-20 09:04] LABS: U Amphetamine Screen Not Detected; U Barbituate Screen Not Detected; U Benzodiazapine Screen Not Detected; U Buprenorphine Screen Not Detected; U Cannabinoids Screen DETECTED; U Cocaine Screen Not Detected; U Methadone Screen Not Detected; U Methamphetamine Screen Not Detected; U Opiates Screen Not Detected; U Oxycodone Screen DETECTED; U Phencyclidine Screen Not Detected
[2024-03-20 15:53] VITALS: BP 101/86
--- NOTE | 2024-03-20 16:54 | NUR ---
SHIFT SUMMARY: PT WITH NO ACUTE CHANGES THIS SHIFT. SLEPT ON AND OFF MAJORITY OF THE DAY, REMAINS ALERT AND ORIENTED X4, BP AND HR STABLE. AFEBRILE. SPO2 >98% ON ROOM AIR. COMPLAINED OF 8/10 R. LEG PAIN, MEDICATED PER EMAR. PT IND TO AND FROM BATHROOM. DIURESING WELL. BED IN LOW, CALL LIGHT IN REACH, WILL REPORT TO ONCOMING RN.
[2024-03-20 20:40] VITALS: BP 145/106
--- NOTE | 2024-03-20 21:07 | NUR ---
PT TRANSFERRING TO ROOM 357 MEDICAL. REPORT GIVEN TO ONCOMING NURSE. PTs VSS ON RA. PT GIVEN PRN OXYCODONE FOR 7/10 PAIN TO BLE. NO FURTHER QUESTIONS OR CONCERNS AT THIS TIME.
[2024-03-21 04:39] VITALS: BP 140/103
[2024-03-21 07:49] VITALS: BP 142/98
[2024-03-21 10:06] LABS: Bun/Creatinine Ratio 18.4 (12.0-20.0); Calcium, Blood 8.9 mg/dL (8.5-10.1); Creatinine, Blood 1.03 mg/dL (0.60-1.20); Potassium, Blood 4.2 mmol/L (3.5-5.5)
[2024-03-21] MEDS ORDERED: Enoxaparin 40 MG/0.4 ML SYR SC SCH (11:00)
[2024-03-21] MEDS ORDERED: Vancomycin HCL 2,500 MG in NS 500 ML IV SCH (11:30)
[2024-03-21] MEDS ORDERED: DiphenhydrAMINE HCL 25 MG Cap PO PRN (12:15)
[2024-03-21] MEDS ORDERED: Furosemide 10 MG / ML 2ML Vial IV SCH (13:00)
[2024-03-21 14:22] VITALS: BP 115/66
--- NOTE | 2024-03-21 16:41 | NUR ---
SHIFT SUMMARY: PATIENT A/OX4, PLEASANT AND COOPERATIVE c CARE. PATIENT ON TELE, SR-ST HR IN THE 90 TO LOW 110'S BPM. PATIENT HAS PLUS 4 PITTING EDEMA TO RLE AND PLUS 2 TO LLE, DIURESED c IV LASIX PER ORDER. PATIENT HAD 6,300 MLS URINE OUTPUT THIS SHIFT. PATIENT REPORTS PAIN 7/10 TO R LEG T/O SHIFT, MEDICATED PER EMAR c GOOD EFFECT. PATIENT RECEIVED IV ABX PER ORDER. PATIENT BLE'S ELEVATED ON PILLOWS ON/OFF T/O SHIFT. PATIENT HAD CT AND VENOUS DUPLEX STUDY TO RLE, c RESULT AVAILABLE TO REVIEW. PATIENT HAS GREAT APPETITE, INDEPENDENT IN ROOM AND CALLS APPROPRIATELY T/O SHIFT. CALL LIGHT IN REACH.
[2024-03-21 19:26] VITALS: BP 128/84
[2024-03-21] MEDS ORDERED: Vancomycin HCL 1,250 MG in NS 250 ML IV SCH (20:00)
[2024-03-22 03:21] VITALS: BP 91/67
[2024-03-22 08:07] VITALS: BP 135/96
[2024-03-22 09:20] LABS: Bun/Creatinine Ratio 15.5 (12.0-20.0); Calcium, Blood 8.9 mg/dL (8.5-10.1); Creatinine, Blood 0.97 mg/dL (0.60-1.20); Potassium, Blood 4.8 mmol/L (3.5-5.5)
[2024-03-22] MEDS ORDERED: Nicotine 14 MG PATCH TOP SCH (11:26)
[2024-03-22 16:19] VITALS: BP 118/81
--- NOTE | 2024-03-22 16:27 | NUR ---
SHIFT SUMMARY MR MARINELLI IS OX4. AMBULATING INDEPENDENTLY UP TO THE BATHROOM. GOOD UOP OF CLEAR PALE YELLOW URINE. MINIMAL WEEPING FROM RLE, VERY TENDER ESPECIALLY BACK OF RIGHT CALF. PAIN MEDICATIONS EFFECTIVELY CONTROLLING THE PAIN. TELE SR, NO CALLS FROM TRAINING CONSULTANT. GOOD APPETITE AND TOLERATING THE FLUID RESTRICTION THOUGH ASKING FOR MORE PO FLUIDS. KEEPING R LEG ELEVATED FOR MUCH OF THE SHIFT. BED LOW, CALL LIGHT IN REACH.
[2024-03-22 19:36] LABS: Vancomycin, Trough 26.6 ug/mL (5.0-10.0)
[2024-03-22 20:10] VITALS: BP 118/90
[2024-03-23 03:52] VITALS: BP 103/78
--- NOTE | 2024-03-23 04:22 | NUR ---
ACTIVITIES COORDINATOR SUMMARY: PT ADMITTED FOR CHF EXACERBATION AND RLE CELLULITIS. FULL CODE. A&O X4. MAKES NEEDS KNOWN. C/O 10/03 RLE PAIN. MEDICATED X2 THIS SHIFT WITH PRN OXYCODONE PER EMAR ORDER; EFFECTIVE. VSS. CRITICAL VANCO TROUGH OF 26.6. NEW VANCO ORDERS TO START 03/23/24. PLAN IS TO D/C IN 1-2 DAYS. BED IN LOWEST POSITION. CALL LIGHT IN REACH.
[2024-03-23 06:09] LABS: Bun/Creatinine Ratio 21.4 (12.0-20.0); Calcium, Blood 9.2 mg/dL (8.5-10.1); Creatinine, Blood 1.03 mg/dL (0.60-1.20); Potassium, Blood 4.4 mmol/L (3.5-5.5)
[2024-03-23] MEDS ORDERED: Vancomycin HCL 1,250 MG in NS 250 ML IV SCH (07:00)
[2024-03-23 07:31] VITALS: BP 110/89
[2024-03-23 15:28] VITALS: BP 113/78
--- NOTE | 2024-03-23 18:00 | NUR ---
SHIFT SUMMARY PATIENT ALERT AND INTERACTIVE. PATIENT INDEPENDENT IN THE ROOM. EDUCATION PROVIDED RELATED TO DIET, FLUID RESTRICTION, WOUND/SKIN CARE. PATIENT RECEPTIVE BUT CONTINUES TO NEED EDUCATION. R LOWER LEG CONTINUES TO BE RED AND SWOLLEN. PATIENT STATES THAT IT IS MUCH BETTER THAN WHEN HE CAME IN. PATIENT MEDICATED FOR PAIN PER MAR.
[2024-03-23] MEDS ORDERED: NS 250 ML IV PRN (19:45)
[2024-03-23 19:53] VITALS: BP 105/63
--- NOTE | 2024-03-24 03:47 | NUR ---
SHIFT SUMMARY 44 YR M ADMITTED ON 03/16/24. FULL CODE. NO ACUTE CHANGES THIS SHIFT. PT C/O PAIN IN HIS RLE AND MEDICATED PER EMAR. HE HAS SLEPT FOR MOST OF THIS SHIFT. HE IS PLEASANT AND COOPERATIVE WITH CARE. HE WAS GIVEN BENADRYL ONCE THIS SHIFT FOR C/O ITCHING DUE TO JAMESON ON HIS ABDOMEN. NO OTHER CHANGES TO REPORT. WILL CONTINUE TO MONITOR. BED IN LOW POSITION AND CALL LIGHT IN REACH.
[2024-03-24 04:19] VITALS: BP 114/84
--- NOTE | 2024-03-24 06:40 | NUR ---
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 HOSPITALIST NOTIFIED AND ADVISED TO CONTINUE MONITORING AND IT IF HAPPENS AGAIN CARDIOLOGY WILL BE CONSULTED. PT IS ASYMPTOMATIC, SLEEPING AND SNORING.
[2024-03-24 07:30] VITALS: BP 111/88
--- NOTE | 2024-03-24 07:57 | NUR ---
NOTE: NOTIFIED BY TELE OF A 1 BEAT RUN OF 2ND DEGREE TYPE 2. DR. CHOWDHURY NOTIFIED. PT APPEARS ASYMPTOMATIC, HE IS SLEEPING. NO NEW ORDERS AT THIS TIME.
[2024-03-24 10:12] LABS: Albumin, Blood 2.9 g/dL (3.4-5.0); Anion Gap 11 mmol/L (3-11); Blood Urea Nitrogen 23 mg/dL (8-24); Bun/Creatinine Ratio 23.1 (12.0-20.0); CO2, Blood 25 mmol/L (21-32); Calcium, Blood 8.6 mg/dL (8.5-10.1); Chloride, Blood 105 mmol/L (98-108); Glomerular Filtration Rate 96 (60-); Glucose, Blood 141 mg/dL (70-99); Magnesium, Blood 2.3 mg/dL (1.6-2.4); Phosphorus, Blood 3.7 mg/dL (2.5-4.9); Potassium, Blood 4.2 mmol/L (3.5-5.5); Sodium, Blood 137 mmol/L (136-145)
[2024-03-24] MEDS ORDERED: Docusate Sodium 100 MG Cap PO PRN (14:25)
[2024-03-24 15:28] VITALS: BP 114/76
[2024-03-24] MEDS ORDERED: Tessalon200 MG PO (17:07)
[2024-03-24] MEDS ORDERED: METO25ER PO (17:10)
[2024-03-24] MEDS ORDERED: Percocet 5-3251 EACH PO (17:16)
[2024-03-24] MEDS ORDERED: AMBIEN10 MG PO (17:17)
--- NOTE | 2024-03-24 18:31 | NUR ---
DISCHARGE NOTE PT DISCHARGED TO [facility] IS HIS HOME, PICKED UP BY A [facility]. POWERGLIDE REMOVED, TELE RETURNED. MEDICATIONS FAXED TO THE PHARMACY OF HIS CHOICE. HARD SCRIPTS PROVIDED. PT WALKED TO THE [facility] ON HIS OWN. MEDICATED PRIOR TO DISCHARGE.
[2024-03-25] MEDS ORDERED: Metoprolol Succinate 25 MG TABCR PO SCH (09:00)
== END 2024-03-24 18:40 | disposition home or self-care (01) | DRG 291 ==
LOC: ER 06:46 → PCU 10:12 → MEDS 10:12 → PCU 13:09 → MEDS 03-20 21:15
PROVIDERS: Emergency Medicine; Internal Medicine; ADMIT Internal Medicine
DX: I11.0 Hypertensive heart disease with heart failure (principal); A41.9 Sepsis, unspecified organism; I50.23 Acute on chronic systolic (congestive) heart failure; L03.115 Cellulitis of right lower limb; I42.8 Other cardiomyopathies; I25.10 Atherosclerotic heart disease of native coronary artery without angina pectoris; I44.1 Atrioventricular block, second degree; D64.9 Anemia, unspecified; E66.9 Obesity, unspecified; F17.210 Nicotine dependence, cigarettes, uncomplicated; Z88.8 Allergy status to other drugs, medicaments and biological substances; Z88.1 Allergy status to other antibiotic agents; Z79.02 Long term (current) use of antithrombotics/antiplatelets; Z79.899 Other long term (current) drug therapy; Z91.148 Patient's other noncompliance with medication regimen for other reason; T46.1X5A Adverse effect of calcium-channel blockers, initial encounter; Z68.35 Body mass index [BMI] 35.0-35.9, adult; Z71.6 Tobacco abuse counseling
CPT/HCPCS: 36415; 71045; 73701; 76882; 80048; 80053; 80069; 80202; 83735; 84484; 85025; 85027; 93005; 93010; 93308; 93321; 93971; 94762; 97116; 97161; 97530; 99285-25; A9270; J0690; J1650; J1940; J3370; J7040; J7050; Q9957; Q9967

== ENCOUNTER 2024-04-02 12:55 | Emergency (ER) | payer OTHER ==
[~2024-04-02] VITALS: Ht 177.8 cm; Wt 108.9 kg
[~2024-04-02 12:55] MED LIST changes: +AMBIEN10 MG PO; +METO25ER PO; +Percocet 5-3251 EACH PO; +Tessalon200 MG PO
[2024-04-02 13:22] LABS: Hematocrit 47.8 % (37.0-53.0); Hemoglobin 15.1 g/dL (13.5-17.5); Mean Corpuscular HGB 26.8 pg (26.0-34.0); Mean Corpuscular HGB Conc 31.6 g/dL (31.5-36.5); Mean Corpuscular Volume 85 fL (80-100); Mean Platelet Volume 9.4 fL (9.1-12.4); Platelet Count 450 K/mm3 (150-400); RDW Coefficient Variation 14.7 % (11.7-14.2); RDW Standard Deviation 45.9 fL (35.1-46.3); Red Blood Cell Count 5.63 M/mm3 (4.30-5.90); White Blood Cell Count 6.19 K/mm3 (4.00-11.30)
[2024-04-02 13:41] LABS: BASOPHILS PERCENT MAN 0 % (0-2); EOSINOPHILS PERCENT MAN 5 % (0-6); LYMPHOCYTES % ATYPICAL MANUAL 1 % (0-0); LYMPHOCYTES ABSOLUTE MAN 1.85 K/mm3 (0.84-5.20); LYMPHOCYTES PERCENT MAN 29 % (21-46); MONOCYTES ABSOLUTE MAN 0.49 K/mm3 (0.16-1.47); MONOCYTES PERCENT MAN 8 % (4-13); NEUTROPHILS ABSOLUTE MAN 3.52 K/mm3 (1.96-9.15); SEG NEUTROPHILS PERCENT MAN 57 % (41-73); TOTAL CELLS COUNTED 100
[2024-04-02 13:59] LABS: Albumin, Blood 3.3 g/dL (3.4-5.0); Albumin/Globulin Ratio 0.7 (0.8-1.8); Bilirubin, Total 0.6 mg/dL (0.1-1.0); Bun/Creatinine Ratio 16.3 (12.0-20.0); Calcium, Blood 8.7 mg/dL (8.5-10.1); Creatinine, Blood 1.23 mg/dL (0.60-1.20); Globulin, Blood 4.8 g/dL (2.2-4.0); Potassium, Blood 3.5 mmol/L (3.5-5.5); Total Protein, Blood 8.1 g/dL (6.4-8.2)
[2024-04-02] MEDS ORDERED: JARDIANCE10 MG PO (16:20)
[2024-04-02] MEDS ORDERED: ENTRESTO 24 MG1 EACH PO (16:20)
== END 2024-04-02 16:31 | disposition home or self-care (01) ==
LOC: ER 12:55
PROVIDERS: Physician Assistant
DX: I50.9 Heart failure, unspecified (principal); E11.9 Type 2 diabetes mellitus without complications; Z79.899 Other long term (current) drug therapy; Z88.0 Allergy status to penicillin; Z88.1 Allergy status to other antibiotic agents
CPT/HCPCS: 71046; 80053; 83880; 84484; 85025; 93005; 93010; 99285-25